=== PATIENT | female | born 1970 ===

== ENCOUNTER 2025-11-17 08:07 | Outpatient (AMB) | payer BC, SELFPAY ==
--- OUTSIDE RECORDS SUMMARY | 2025-11-13 23:59 | XMS_ITS | Continuity of Care Document ---
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 Multiskill Operator Name Role Phone Jong ARNOLD, [facility] Primary Care Physician Encounter [facility] Date(s): 10/14/25 - 11/13/25 [facility] [address] [place] [address]- Attending Physician: Admtr, Ar8 Admitting Physician: Admtr, Ar8 Referring Physician: Admtr, Ar8 Encounter Type: Triage Allergies, Adverse Reactions, Alerts No Known Allergies Immunizations Given and Recorded Vaccine Date Status Refusal Reason tetanus/diphtheria/pertussis, acel(Tdap) 05/03/22 Given tetanus/diphtheria/pertussis, acel(Tdap) 1 04/14/12 Recorded SARS-CoV-2 (COVID-19) mRNA-1273 vaccine 03/21/21 R ecorded SARS-CoV-2 (COVID-19) mRNA-1273 vaccine 02/21/21 R ecorded SARS-CoV-2 (COVID-19) mRNA-1273 vaccine 01/29/21 R ecorded influenza virus vaccine, inactivated 2 12/10/19 Gi pavel influenza virus vaccine, inactivated 08/13/17 Cordell rded influenza virus vaccine, inactivated 3 09/29/13 Re corded Hepatitis B Vaccine (old term) 4 01/04/15 Recorded Hepatitis B Vaccine (old term) 5 08/30/14 Recorded pneumococcal 23-valent vaccine 11/15/14 Given 1Location History: [facility] physicians 2Result Comment: [facility]:[id number] 3Location History: [email or web address] 4Location History: [facility] 5Location History: [facility] Medications Advair HFA 115 mcg / 21 mcg 2 puffs, Inhalation, 2 times a day, # 60 each, 5 Refills, Maintenance, 07/11/23 11:14:00 AM EDT, Aerosol, [id number], Partial fill upon patient request if the prescription is for a schedule IIopioid drug., 2 puffs Inhalation 2 times a day, 153, cm, 07/11/23 11:06:00 EDT, Height, 66, kg, 04/14/23 18:29:00 EDT, Dry Weight Start Date: 07/11/23 Status: Ordered Medication Dispense Status: Completed Quantity: 60.0 Unit: each Total Allowed Fills: 6 Fills Dispensed: 0 albuterol 0.083% inhalation solution 3 mL = 2.5 mg, Inhalation, Every 6 hours, PRN wheezing, (3 ml = 0.99428ix of Albuterol), # 360 mL, 5 Refills, Maintenance, 09/15/24 10:38:00 AM EDT, Inhalation Solution, [id number], 153, cm, 08/10/24 17:52:00 EDT, Height, 67.7, kg, 05/13/24 8:38:00 EDT, Dry Weight Start Date: 09/15/24 Status: Ordered Medication Dispense Status: Completed Quantity: 360.0 Unit: mL Total Allowed Fills: 6 Fills Dispensed: 0 amLODIPine 5 mg oral tablet 1 tablet = 5 mg, By Mouth, Daily, TAKE 1 TABLET BY MOUTH DAILY NEEDED FOR ELEVATED BLOOD PRESSURE, # 90 tablet, 11 Refills, Maintenance, 09/19/25 2:42:00 PM EDT, Tablet, [id number], Partial fill upon patient request if the prescription is for a schedule II opioid drug., 152.5, cm, 08/30/25 10:55:00 EDT, Height, 67, kg, 05/10/25 14:08:00 EDT, Dry Weight Start Date: 09/19/25 Status: Ordered Medication Dispense Status: Completed Quantity: 90.0 Unit: tablet Total Allowed Fills: 12 Fills Dispensed: 0 ciclopirox 8% topical solution 1 application, Topically, Daily, to affected area, use daily and remove with alcohol after 7 days, # 3.3 mL, 2 Refills, Maintenance, 05/10/25 2:46:00 PM EDT, Solution, [id number], Partial fillupon patient request if the prescription is for a schedule II opioid drug., 1 application Topically Daily,Instr:to affected area, use daily and remove with alcohol after 7 days, 152.5, cm, 05/10/25 14:44:00 EDT, Height, 67, kg, 05/10/25 14:08:00 EDT, Dry Weight Start Date: 05/10/25 Status: Ordered Medication Dispense Status: Completed Quantity: 3.3 Unit: mL Total Allowed Fills: 3 Fills Dispensed: 0 Claritin-D 24 Hour 10 mg-240 mg oral tablet, extended release 1 tablet, By Mouth, Daily, PRN as needed for congestion, # 5 tablet, 0 Refills, Maintenance, 05/21/25 9:47:00 AM EDT, [id number], Partial fill upon patient request if the prescription is for aschedule II opioid drug., 1 tablet By Mouth Daily,PRN:as needed for congestion, 152.5, cm, 258:57:00 EDT, Height, 67, kg, 05/10/25 14:08:00 EDT, Dry Weight Start Date: 05/21/25 Status: Ordered Medication Dispense Status: Completed Quantity: 5.0 Unit: tablet Total Allowed Fills: 1 Fills Dispensed: 0 Indications: Streptococcal pharyngitis; hydrOXYzine pamoate 25 mg oral capsule See Instructions, PRN as needed for anxiety, TAKE 1 CAPSULE BY MOUTH EVERY DAY AT BEDTIME NEEDEDANXIETY/INSOMNIA [id number], # 14 capsule, 3 Refills, Maintenance, 12/27/24 4:56:00 PM EST, [id number], 152.5, cm, 11/17/24 9:08:00 EST, Height, 66, kg, 11/12/24 8:09:00 EST, Dry Weight Start Date: 12/27/24 Status: Ordered Medication Dispense Status: Completed Quantity: 14.0 Unit: capsule Total Allowed Fills: 4 Fills Dispensed: 0 ibuprofen 600 mg oral tablet 600 mg, 1, tablet, By Mouth, Every 6 hours, # 90 tablet, Refills 0, Tot. Refills 0, Maintenance, 10/14/25 6:12:00 PM EST, Route to Pharmacy Electronically, [id number], Partial fill upon patient request if the prescription is for a schedule II opioid drug., 152, cm, 10/14/25 15:07:00 EST, Height, 68, kg, 09/20/25 12:13:00 EDT, Dry Weight Start Date: 10/14/25 Status: Ordered Medication Dispense Status: Completed Quantity: 90.0 Unit: tablet Total Allowed Fills: 1 Fills Dispensed: 0 Indications: Pain in right foot; Other specified congenital musculoskeletal deformities; Mag-SR with Calcium By Mouth, Daily, 0 Refills, Maintenance, 07/11/23 11:09:00 AM EDT, Partial fill upon patient requestif the prescription is for a schedule II opioid drug. Start Date: 07/11/23 Status: Ordered Medication Dispense Status: Completed Total Allowed Fills: 1 Fills Dispensed: 0 Multi Vitamin+ 0 Refills, Maintenance, 12/25/18 3:50:24 PM EST Start Date: 12/25/18 Status: Ordered Medication Dispense Status: Completed Total Allowed Fills: 1 Fills Dispensed: 0 riboflavin 400 mg oral capsule 1 capsule = 400 mg, By Mouth, Daily, # 100 capsule, 3 Refills, Maintenance, 10/04/24 2:02:00 PM EST,Capsule, [id number], 153, cm, 08/10/24 17:52:00 EDT, Height, 67.7, kg, 05/13/24 8:38:00 EDT, Dry Weight Start Date: 10/04/24 Status: Ordered Medication Dispense Status: Completed Quantity: 100.0 Unit: capsule Total Allowed Fills: 4 Fills Dispensed: 0 Ventolin HFA 108 mcg/inh inhalation aerosol with adapter 2 puffs, Inhalation, Every 4 hours, PRN for wheezing, # 8 Gm, 6 Refills, Maintenance, 05/13/24 9:08:00 AM EDT, Aerosol, [id number], Partial fill upon patient request if the prescription is fora schedule II opioid drug., 153, cm, 05/13/24 9:07:00 EDT, Height, 67.7, kg, 05/13/24 8:38:00 EDT, Dry Weight Start Date: 05/13/24 Status: Ordered Medication Dispense Status: Completed Quantity: 8.0 Unit: g Total Allowed Fills: 7 Fills Dispensed: 0 Vitamin B12 1000 mcg oral tablet 1 tablet = 1,000 mcg, By Mouth, Daily, # 30 tablet, 11 Refills, Maintenance, 12/09/22 9:17:00 AM EST,Tablet Start Date: 12/09/22 Status: Ordered Medication Dispense Status: Completed Quantity: 30.0 Unit: tablet Total Allowed Fills: 12 Fills Dispensed: 0 Vitamin D3 2000 intl units oral capsule 1 capsule = 2,000 International_Units, By Mouth, Daily, # 90 capsule, 2 Refills, Maintenance, 12/09/22 9:17:00 AM EST, Capsule Start Date: 12/09/22 Status: Ordered Medication Dispense Status: Completed Quantity: 90.0 Unit: capsule Total Allowed Fills: 3 Fills Dispensed: 0 Problem List Condition Confirmation Course Effective Dates Status H ealth Status Informant Abdominal pain Confirmed Active Adjustment disorder with anxiety Confirmed Active Allergic reaction Confirmed Active Anxiety Confirmed Active Bacterial sinusitis Confirmed Active Carpal tunnel syndrome, bilateral Confirmed Active Chronic pelvic pain in female Confirmed Active COVID Confirmed Active Dizziness Confirmed Active Endometriosis Confirmed Active Hx of migraines Confirmed Active Intractable headache Confirmed Active History of recurrent UTIs Confirmed Active Hyperlipidemia Confirmed Active Hypertension Confirmed Active Asthma Confirmed Active Panic attacks Confirmed Active Panic attacks Confirmed Active Routine medical exam Confirmed Active Pharyngitis Confirmed Active Productive cough Confirmed Active Recurrent UTI Confirmed Active Bilateral thigh pain Confirmed Active Fibroid uterus Confirmed Active EKG study * Event Display: EKG Authored Date: Patient Care team information Care Team Personnel Name: Evin ARNOLD, Mingo De La Torre Position: [facility] EAR NOSE THROAT PHYSICIAN MD Member Role: [employer] EAR NOSE THROAT PHYSICIAN Physician Name: Adriana Myers Position: [facility] Outreach Member Role: [employer] Consulting Physician Name: Rebecca Sunshine MD Position: [facility] Physician - Primary Care Member Role: PCP Address: [address] [place] [address] Adult & Pediatric Medicine [address] Telecom: Care Team Related Persons Name: NONE, NONE Name: NADIA CARDENAS Name: ZEHRA LARRY Insurance Providers Guarantor name: [facility] Information #: 1 Payer: [employer] Payer Identifier: ALIE Member Number: [id number] Group Number: [id number] Subscriber Identifier: ALIE Relationship to Subscriber: spouse Coverage Type: NA Coverage Verification Date: Telecom: NA Address:
--- OUTSIDE RECORDS SUMMARY | 2025-11-13 23:59 | XMS_ITS | Continuity of Care Document ---
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 Name Role Phone Jong ARNOLD, [facility] Primary Care Physician [phone] Encounter [facility] Date(s): 10/14/25 - 11/13/25 [facility] [address], [place] [address] Encounter Type: Triage Allergies, Adverse Reactions, Alerts [...] pneumococcal 23-valent vaccine 11/15/14 Given 1Location History: [facility] physicians 2Result Comment: [facility]:[id number] 3Location History: [facility] 4Location History: [facility] 5Location History: [facility] Medications Advair HFA 115 mcg / [...] 6 hours, PRN wheezing, (3 ml = 0.11148of of Albuterol), # 360 mL, 5 Refills, [...] BY MOUTH EVERY DAY AT BEDTIME NEEDEDANXIETY/INSOMNIA [id number], # 14 capsule, 3 Refills, Maintenance, 12/27/24 [...] 6:12:00 PM EST, Route to Pharmacy Electronically, [id number], Partial fill upon patient request [...] 3 Refills, Maintenance, 10/04/24 2:02:00 PM EST,Capsule, [id number], 153, cm, 08/10/24 17:52:00 EDT, Height, [...] pain Confirmed Active Fibroid uterus Confirmed Active Patient Care team information Care Team Personnel Name: Mingo Cleary MD Position: [facility] CAN CONVEYOR FEEDER MD Member Role: [employer] CAN CONVEYOR FEEDER Physician Name: Adriana Myers Position: [facility] Outreach Member Role: [employer] Consulting Physician Name: Rebecca Sunshine MD Position: [facility] Physician - Primary Care Member Role: PCP Address: [address] [place] [address] Adult & Pediatric Medicine [address] Telecom: Care Team Related Persons Name: NONE, NONE Name: NADIA CARDENAS Name: ZEHRA LARRY Insurance Providers Guarantor name: [facility] Information #: 1 Payer: [employer] [facility] Payer Identifier: ALIE Member Number: [id number] Group Number: [id number] Subscriber Identifier: NA Relationship to Subscriber: spouse Coverage Type: NA Coverage Verification Date: NA Telecom: NA Address:
--- NOTE | 2025-11-17 08:10 | MHC.PC.OV ---
Vital Signs 11/17/25 08:13 Height 5 ft Weight 151 lb 8 oz BMI 29.6 BP 130/86 Blood Pressure Location Lt brachial Position Sitting Respiration 16 Pulse 68 Pulse Source Pulse Oximeter Temp 97.1 F Temp Source Temporal Artery Scan Pulse Oximetry (%) 95 Oxygen Delivery Method Room Air Intake Visit Reasons: New Patient Re Est Care - see comments Health Sciences Dean Required: No Accompanied by: Self / Same As Patient Allergies No Known Allergies Allergy (Verified 11/17/25 08:15) Medication List - Last Reconciled 11/17/25 by Gaby Ahmadi MD amlodipine 5 mg PO DAILY PRN ondansetron 4 mg PO Q6H PRN Tobacco use date assessed: 11/17/25 Dental Screening Dental Screen Date: 11/17/25 Did you have a dental visit in the last 12 months?: Yes Did you have a dental problem in the last 6 months where you did not have access to dental care?: No Was dental information given to patient?: Patient has dentist HPI HPI Comments History of Present Illness Details The patient is a 55 year old female [facility] and for evaluation of headaches. Headache: The patient reports experiencing daily, severe headaches located in the back of her neck and radiating upwards. The pain is currently rated at a 2/10 severity but can be severe enough to restrict head movement. She notices the headaches are more pronounced at home. She has a history of migraines and was previously taking riboflavin 400 mg for prophylaxis, but this medication . She recently restarted amlodipine due to the headaches. Essential Hypertension: The patient has a history of hypertension with a blood pressure reading of 130/86 mmHg at today's visit. She reports recently restarting amlodipine. Asthma: The patient has a history of asthma and possesses both a nebulizer and an inhaler (Advair), which she uses on an as-needed basis rather than regularly. She takes precautions to avoid respiratory illnesses. Recurrent Urinary Tract Infections/ Possible menopausal symptoms: The patient reports ongoing issues with recurrent UTIs. She has a history of a hysterectomy with ovarian preservation. She has not had a gynecological exam in over two years. Muscle Cramps: The patient reports experiencing occasional muscle cramping, including Gustavo horses in her upper back. She has a history of hospitalization for hypokalemia and occasionally takes a potassium supplement. Social History: - Exercise: She engages in walking with her partner. - Nutrition: She and her are actively trying to improve their diet by increasing intake of salads, natural foods, and smoothies while reducing sodium, fat, starches, soda, bread, and pasta. Family History Includes: - PCOS- suspected in daughters - Reports a family history of complications related to gynecological issues. [facility] Medical History (Updated 11/17/25 @ 09:20 by Gaby Ahmadi MD) Screening for colon cancer Routine gynecological examination Recurrent UTI Vitamin B12 deficiency (non anemic) Vitamin D deficiency Routine medical exam Generalized anxiety disorder Unspecified asthma Mixed hyperlipidemia Primary hypertension Surgical History (Updated 11/17/25 @ 09:19 by Gaby Ahmadi MD) Previous section S/P GARTH (total abdominal hysterectomy) History of colonoscopy (~10/25/14) Family History (Updated 11/17/25 @ 08:21 by Autumn Salinas CMA) Maternal Aunt Mental health problem Substance abuse Other Coronary artery disease Diabetes mellitus type 2 in nonobese Primary hypertension Unspecified asthma Social History Housing: House Patient Tobacco Use Status: Former Tobacco user Years Smoked: during college, socially e-Cigarette/Vaping Use: Never Used Current occupational status: employed 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 1. Little interest or pleasure in doing things: not at all 2. Feeling down, depressed, or hopeless: not at all 3. Trouble falling or staying asleep, or sleeping too much: not at all 4. Feeling tired or having little energy: not at all 5. Poor appetite or overeating: not at all 6. Feeling bad about yourself - or that you are a failure or have let yourself or your family down: not at all 7. Trouble concentrating on things, such as reading the newspaper or watching television: not at all 8. Moving or speaking so slowly that other people could have noticed. Or the opposite - being so fidgety or restless that you have been moving around a lot more than usual: not at all 9. Thoughts that you would be better off or of hurting yourself in some way: not at all Total score: 0 Depression Screening Interpretation: Negative Depression Screening Done: Yes 37439 - PHQ-9 Billing: Yes Source: Developed by Drs. Bobby Buitrago, Carlie Ceron, Adonis Curtis and colleagues, with an educational arnaldo from [employer]. Thrive Questionnaire Date Thrive assessed: 11/17/25 I am a: Patient What is your living situation today?: I have a steady place to live Within the past 12 months, did the food you bought not last and you didn't have the money to get more?: Never true Within the past 12 months, did you worry whether your food would run out before you got money to buy more?: Never true Do you have trouble paying for medicines?: No Do you have trouble getting transportation to medical appointments?: No Do you have trouble paying your heating and electricity bill?: No Do you have trouble taking care of your child, family member or friend?: No Do you have trouble with day-to-day activities such as bathing, preparing meals, shopping, managing finances, etc.?: No Are you currently unemployed and looking for a job?: No Are you interested in more education?: No Please select the resources that you would like help with: None Currently or been in a relationship where the following occur: No concerns reported THRIVE Score: 0 AUDIT C Alcohol Use Questionnaire (AUDIT-C) 1. How often do you have a drink containing alcohol?: Monthly or less 2. How many drinks containing alcohol do you have on a typical day when you are drinking?: 1 or 2 3. How often do you have six or more drinks on one occasion?: Never Total Score: 1 JAUN-7 AMB Questionnaire JAUN-7 Date JAUN - 7 assessed: 11/17/25 Feeling nervous, anxious, or on edge: 0 = Not at all Not being able to stop or control worryin = Not at all Worrying too much about different things: 0 = Not at all Trouble relaxin = Not at all Being so restless that it is hard to sit still: 0 = Not at all Becoming easily annoyed or irritable: 0 = Not at all Feeling afraid as if something awful might happen: 0 = Not at all Total JAUN-7 score (0-4 normal; 5-9 mild; 10-14 moderate; 15-21 severe): 0 Source: Developed by Carlie Alvarado.W. Osmany, Adonis Curtis and colleagues, with an educational arnaldo from [employer]. Review of Systems Narrative Review of Systems - Constitutional: Reports hair loss. - Respiratory: Denies current wheezing; uses inhaler only as needed - Neurological: Reports daily headaches radiating from the neck upwards and occasional muscle cramps (Gustavo horses) in the back and legs. - Endocrine: Reports being thirsty at night and having frequent urination. - Psychiatric: Denies work stress and reports sleeping well. - Genitourinary: Reports recurrent UTIs, problems with intimacy, and vaginal dryness. Physical exam (Primary Care) Vital Signs: Last Vital Signs Temp 97.1 F 11/17/25 08:13 Pulse 68 11/17/25 08:13 Resp 16 11/17/25 08:13 BP 130/86 11/17/25 08:13 Pulse Ox 95 11/17/25 08:13 Oxygen Delivery Method Room Air 11/17/25 08:13 BMI result Body Mass Index 29.6 Tobacco/Smoking Status: Tobacco use Status Tobacco use date assessed 11/17/25 11/17/25 08:12 Patient Tobacco Use Status Former Tobacco user 11/17/25 08:21 e-Cigarette/Vaping Use Never Used 11/17/25 08:21 PHQ-9: PHQ-9 Score PHQ-9: Total score 0 11/17/25 09:16 Depression Screening Interpretation: Negative Thrive Assessment: Date of Thrive Assessment Date Thrive assessed 11/17/25 11/17/25 08:12 Currently or been in a relationship where the following occur: No concerns reported Narrative Physical Exam - Gen; NAD - Cardiovascular: Regular rate and rhythm. A soft murmur is noted. - Pulmonary: Lungs are clear to auscultation bilaterally. No wheezing noted. - Abdomen: Bowel sounds are normal. Abdomen is soft and non-tender to palpation. - Neck/Musculoskeletal: Palpation reveals significant tightness in the bilateral sternocleidomastoid muscles Coding Level of Care Code Est Pt Level 4 (15146) Add On Problem Visit Only Diagnoses Primary hypertension I10 Mixed hyperlipidemia E78.2 Additional Codes PHQ-9 - 58869 - PHQ-9 Billing: Yes ([id number]) Assessment & Plan Assessment & Plan (1) Primary hypertension: Code(s): I10 - Essential (primary) hypertension Category: Medical (2) Mixed hyperlipidemia: Code(s): E78.2 - Mixed hyperlipidemia Category: Medical Plan Assessment and Plan 1. Headache - The patient's daily headaches are likely cervicogenic or tension-type, given the significant neck muscle tightness found on exam. - Migraine remains a differential. - The plan is to address potential triggers and provide prophylaxis. - I will order a comprehensive lab panel today, including vitamin D, B12, thyroid, calcium, CBC, and a diabetes screen. - She is advised to restart riboflavin 400 mg daily, start magnesium 400 mg daily, and take vitamin B12 1000 mcg and vitamin D 2000 IU. - She should use a heating pad on her neck - If symptoms do not improve in 3-4 weeks, a referral for physical therapy for myofascial release will be considered. 2. Essential hypertension - The patient has appropriately restarted her amlodipine. - Her planned dietary modifications, including reduced sodium, should also be beneficial. 3. Recurrent UTIs and Perimenopausal Symptoms - Referral to FIELD SERVICE ENGINEER - has used macrobid in the past for prophylaxis 4. Muscle Cramps - The patient reports occasional muscle cramps and has a history of hypokalemia. - The ordered lab work will assess current electrolyte levels. - The initiation of magnesium 400 mg daily may also help alleviate these symptoms. 5. Health Maintenance - A referral for a colonoscopy will be placed. - FIELD SERVICE ENGINEER referral - follow up for physical in December 2025 Plan - Will order comprehensive lab work today, including vitamin D, B12, thyroid function, calcium, CBC, anemia panel, and diabetes screening. - Recommended adjusting vitamin regimen to: riboflavin 400 mg, magnesium 400 mg, B12 1000 mcg, vitamin D 2000 IU, and reducing multivitamin to one gummy daily. - Advised patient on home care for neck pain, including consistent use of a heating pad and purchasing a new supportive pillow. - If headaches do not improve with conservative measures within 3-4 weeks, will refer for physical therapy. Patient Instructions - Please go to the lab today to have your blood drawn for the tests we discussed. - Restart taking Riboflavin 400 mg once a day for headache prevention. - Start taking Magnesium 400 mg once a day. - Take Vitamin B12 1000 mcg and Vitamin D 2000 IU daily. - Reduce your multivitamin intake to one gummy per day. - Continue taking your amlodipine as prescribed for blood pressure. - Apply a heating pad to your neck area to help with the muscle tightness and headaches. - Continue with your healthy diet changes, including eating more salads and vegetables and reducing salt and starches. Orders: Orders Comprehensive Met. Panel Today E53.8 - Deficiency of other specified B group vitamins, E55.9 - Vitamin D deficiency, unspecified, E78.2 - Mixed hyperlipidemia, I10 - Essential (primary) hypertension, Z00.00 - Encounter for general adult medical examination without abnormal findings Microalbumin, Random (w Creat) Today E53.8 - Deficiency of other specified B group vitamins, E55.9 - Vitamin D deficiency, unspecified, E78.2 - Mixed hyperlipidemia, I10 - Essential (primary) hypertension, Z00.00 - Encounter for general adult medical examination without abnormal findings Folate Today E53.8 - Deficiency of other specified B group vitamins, E55.9 - Vitamin D deficiency, unspecified, E78.2 - Mixed hyperlipidemia, I10 - Essential (primary) hypertension, Z00.00 - Encounter for general adult medical examination without abnormal findings Lipid Panel Today E53.8 - Deficiency of other specified B group vitamins, E55.9 - Vitamin D deficiency, unspecified, E78.2 - Mixed hyperlipidemia, I10 - Essential (primary) hypertension, Z00.00 - Encounter for general adult medical examination without abnormal findings Complete Blood Count Auto Diff Today E53.8 - Deficiency of other specified B group vitamins, E55.9 - Vitamin D deficiency, unspecified, E78.2 - Mixed hyperlipidemia, I10 - Essential (primary) hypertension, Z00.00 - Encounter for general adult medical examination without abnormal findings Magnesium Today E53.8 - Deficiency of other specified B group vitamins, E55.9 - Vitamin D deficiency, unspecified, E78.2 - Mixed hyperlipidemia, I10 - Essential (primary) hypertension, Z00.00 - Encounter for general adult medical examination without abnormal findings Vitamin B12 Today E53.8 - Deficiency of other specified B group vitamins, E55.9 - Vitamin D deficiency, unspecified, E78.2 - Mixed hyperlipidemia, I10 - Essential (primary) hypertension, Z00.00 - Encounter for general adult medical examination without abnormal findings Vitamin D 25-OH Total Today E53.8 - Deficiency of other specified B group vitamins, E55.9 - Vitamin D deficiency, unspecified, E78.2 - Mixed hyperlipidemia, I10 - Essential (primary) hypertension, Z00.00 - Encounter for general adult medical examination without abnormal findings TSH reflex Free T4 Today E53.8 - Deficiency of other specified B group vitamins, E55.9 - Vitamin D deficiency, unspecified, E78.2 - Mixed hyperlipidemia, I10 - Essential (primary) hypertension, Z00.00 - Encounter for general adult medical examination without abnormal findings Ferritin Today E53.8 - Deficiency of other specified B group vitamins, E55.9 - Vitamin D deficiency, unspecified, E78.2 - Mixed hyperlipidemia, I10 - Essential (primary) hypertension, Z00.00 - Encounter for general adult medical examination without abnormal findings Hemoglobin A1c Today E53.8 - Deficiency of other specified B group vitamins, E55.9 - Vitamin D deficiency, unspecified, E78.2 - Mixed hyperlipidemia, I10 - Essential (primary) hypertension, Z00.00 - Encounter for general adult medical examination without abnormal findings IRON PROFILE Today E53.8 - Deficiency of other specified B group vitamins, E55.9 - Vitamin D deficiency, unspecified, E78.2 - Mixed hyperlipidemia, I10 - Essential (primary) hypertension, Z00.00 - Encounter for general adult medical examination without abnormal findings Referrals [facility] Referral N39.0 - Urinary tract infection, site not specified, Z01.419 - Encounter for gynecological examination (general) (routine) without abnormal findings Gastroenterology Referral Z12.11 - Encounter for screening for malignant neoplasm of colon Medications: New magnesium oxide 400 mg PO DAILY 90 caps 3RF riboflavin (vitamin B2) 400 mg PO DAILY 90 tabs 3RF albuterol sulfate 90 mcg/actuation 2 puffs inhalation Q6H PRN cholecalciferol (vitamin D3) 50 mcg PO DAILY 90 caps 3RF cyanocobalamin (vitamin B-12) 1,000 mcg PO DAILY 90 caps 3RF albuterol sulfate 2.5 mg inhalation Q6H PRN fluticasone propion-salmeterol 115-21 mcg/actuation (Advair HFA) 2 puffs inhalation BID amlodipine 5 mg PO DAILY PRN 90 tabs 3RF blood pressure Patient Instructions: [phone] CAN SCHEDULE APPOINTMENT WITH NURSE BRET WILSON WE WILL REFER YOU TO SEE GASTROENTEROLOGY FOR COLONOSCOPY
--- OUTSIDE RECORDS SUMMARY | 2025-11-17 08:12 | XMS_ITS | Clinical Summary ---
Author Organization [facility] [address] [facility] Address [address] [place] [address] Phone Care Team Providers Care Chemical Maker Name Role Phone Gaby Ahmadi MD Primary Care Provider [phone] Allergies No known active allergies Medications fluticasone propion-salmete roL (ADVAIR HFA) 115-21 mcg/actuation inhaler Inhale 2 puffs by mouth 2 (two) times a day. Rinse mouth with water after use to reduce aftertaste and incidence of candidiasis. Do not swallow. Active albuterol HFA (PROAIR HFA ; PROVENTIL HFA ; VENTOLIN HFA) 90 mcg/actuation inhaler Inhale 2 puffs by mouth every 6 (six) hours if needed for wheezing. Active amLODIPine (NORVASC) 5 mg tablet Take 1 tablet (5 mg total) by mouth 1 (one) time each day. Active ciclopirox (PENLAC) 8 % solution Apply over nail and surrounding skin. Apply daily over previous coat. After seven (7) days, may remove with alcohol and continue cycle. Active hydrOXYzine HCL (ATARAX) 25 mg tablet Take 1 tablet (25 mg total) by mouth. Active magnesium lactate (MAGTAB) 84 mg CR tablet Take by mouth. Activ e multivitamin tablet Take 1 tablet by mouth 1 (one) time each day. Active riboflavin (VITAMIN B2) 400 mg tablet Take 1 tablet (400 mg total) by mouth 1 (one) time each day. Active albuterol (PROVENTIL,VENT WILVER) 2 mg/5 mL syrup Take by mouth 3 (three) times a day. Active cyanocobalamin (VITAMIN B-12) 1,000 mcg tablet Take 1 tablet (1,000 mcg total) by mouth 1 (one) time each day. Active Social History Tobacco Use Types Packs/Day Years Used Date Smoking Tobacco: Never Assessed Comments Unknown Sex and Gender Information Value Date Recorded Sex Assigned at Female 05/13/2025 10:48 AM EDT Legal Sex Female 4:36 AM EST Gender Identity Female 05/13/2025 10:48 AM EDT Sexual Orientation Not on file Plan of Treatment Health Maintenance Due Date Last Done Comments Breast Cancer Screening 1971 Colorectal Cancer Screening: Colonoscopy 1971 Cervical Cancer Screening: P ap Smear 1992 Hepatitis B Vaccines (3 of 3 - 19+ 3-dose series) 03/01/2015 01/04/2015, 08/30/2014 Pneumococcal Vaccine: 50+ Years (2 of 2 - PCV) 11/15/2015 11/15/2014 RSV Immunization Adult Patients (1 - Risk 50-74 years 1-dose series) 2021 Zoster Vaccines (1 of 2) 2021 Cholesterol Screening (Lipid Panel) 11/03/2022 HIV Screening 11/03/2022 Hepatitis C Screening 11/03/2022 Social Influencers of Health Screening 11/03/2022 Depression Screening 12/01/2024 COVID-19 Vaccine (4 - 2024-2 6 season) 2025 03/21/2021, 02/21/2021, 01/29/2021 Influenza Vaccine (#1) 2025 , 08/13/2017, 09/29/2013 Hypertension/CHF/CAD Annual BMP Blood Test 10/12/2025 DTaP,Tdap,and Td Vaccines (3 - Td or Tdap) 05/03/2032 05/03/2022, 04/14/2012 HIB Vaccines Aged Out No longer eligi ble based on patient's age to complete this topic HPV Vaccines Aged Out No longer eligi ble based on patient's age to complete this topic Hepatitis A Vaccines Aged Out No long er eligible based on patient's age to complete this topic IPV Vaccines Aged Out No longer eligi ble based on patient's age to complete this topic MMR Vaccines Aged Out No longer eligi ble based on patient's age to complete this topic Meningococcal ACWY Vaccine Aged Out N o longer eligible based on patient's age to complete this topic Meningococcal B Vaccine Aged Out No l onger eligible based on patient's age to complete this topic RSV Immunization Patients Under 20 months Aged Out No longer eligible b ased on patient's age to complete this topic Varicella Vaccines Aged Out No longer eligible based on patient's age to complete this topic Insurance [facility] Care Teams Chemical Maker Relationship Specialty [place] [address] [place] [id number] PCP - General Internal Medicine 05/13/25
[2025-11-17 08:13] VITALS: BP 130/86; PULSE 68; RESP 16; TEMP 36.2; O2SAT 95; BMI 29.6
== END 2025-11-17 09:33 | disposition home or self-care (01) ==
LOC: HO.HMCHD 08:08
PROVIDERS: PCP Internal Medicine; Visit Provider Internal Medicine
DX: I10 Essential (primary) hypertension (principal); E78.2 Mixed hyperlipidemia

== ENCOUNTER 2025-11-17 08:07 | Outpatient (REF) | payer BC, SELFPAY ==
[2025-11-17 10:52] LABS: MANUAL DIFF FLAG NO
[2025-11-17 10:57] LABS: Hematocrit 42.7 % (37.0-47.0); Hemoglobin 14.4 g/dl (12.0-16.0); Imm Gran Abs Auto 0.01 X10*3/uL (0.00-0.03); Imm Gran Pct Auto 0.2 % (0.0-0.4); Lymphocytes Absolute Auto 2.1 X10*3/uL (1.2-4.9); Mean Corpuscular HGB Conc 33.7 g/dl (31.0-35.0); Mean Corpuscular Hemoglobin 27.0 pg (27.0-33.0); Mean Corpuscular Volume 80.1 fL (80.0-98.0); NRBC Abs Auto 0.000 X10*3/uL (0.0-0.012); NRBC Pct Auto 0.0 /100WBC (0.0-0.2); Platelet Count 234 X10*3/uL (160-400); Red Blood Count 5.33 X10*6/uL (4.20-5.50); White Blood Count 5.5 X10*3/uL (4.8-10.8)
--- OUTSIDE RECORDS SUMMARY | 2025-11-17 12:24 | XMS_ITS | Clinical Summary ---
Author Organization [facility] Address [address] [place] [address] Phone Care Team Providers Care Letter Of Credit Clerk Name Role Phone Gaby Ahmadi MD Primary Care Provider + Allergies No known active allergies Social History Tobacco Use Types Packs/Day Years Used Date Smoking Tobacco: Never Assessed Education Answer Date Recorded Are you interested in more education? Not on milagros e 03/29/2023 Are you concerned about learning? Not on file 03/29/2023 No 03/29/2023 No 03/29/2023 Digital Access Answer Date Recorded No 04/29/2023 No 04/29/2023 Reliable internet access at home? Not on file 04/29/2023 Device with a working camera? Not on file Comments Unknown Sex and Gender Information Value Date Recorded Sex Assigned at Not on file Legal Sex Female 3:06 PM EDT Gender Identity Not on file Sexual Orientation Not on file Last Filed Vital Signs Vital Sign Reading Time Taken Comments Blood Pressure 172/107 04/24/2022 8:03 PM EDT Pulse 78 04/24/2022 8:03 PM EDT Temperature 36.9 C (98.4 F) 04/24/2022 8:03 PM EDT Respiratory Rate 20 04/24/2022 3:33 PM EDT Oxygen Saturation 97% 04/24/2022 8:03 PM EDT Inhaled Oxygen Concentration - - Weight 68.9 kg (152 lb) 04/24/2022 3:33 PM EDT Height 152.4 cm (5') 04/24/2022 3:33 PM EDT Body Mass Index 29.69 04/24/2022 3:33 PM EDT Plan of Treatment Not on file Medical Devices Not on file Insurance O O O O O O O O HMO Care Teams Letter Of Credit Clerk Relationship Specialty Start Date End Date Gaby Ahmadi MD PCP - General Internal Medicine 04/24/22 Additional Source Comments The information contained in this document represents components of the legal health record. It is not the complete legal health record.[facility]
[2025-11-17 14:05] LABS: Folate 11.2 ng/mL (> or = 4.0); Vitamin B12 485 pg/mL (200-900)
[2025-11-17 14:10] LABS: Alanine Aminotransferase 24 U/L (0-31); Albumin Level 4.6 g/dL (3.5-5.0); Alkaline Phosphatase 200 U/L (39-117); Anion Gap 13 (12-20); Aspartate Amino Transferase 20 U/L (5-31); Blood Urea Nitrogen 20 mg/dL (9-16); Calcium 9.2 mg/dL (8.4-10.2); Carbon Dioxide 27 mmol/L (22-29); Chloride 107 mmol/L (96-108); Cholesterol 295 mg/dL (<200); Estimated Glomerular Filt Rate > 60; Ferritin 28 ng/mL (10-250); HDL Cholesterol 52 mg/dL (>40); Iron 73 mcg/dL (30-160); Magnesium 2.3 mg/dL (1.6-2.6); Percent Iron Saturation 23 % (15-50); Potassium 3.7 mmol/L (3.3-5.1); Sodium 143 mmol/L (135-145); Total Iron Binding Capacity 318 mcg/dL (228-428); Total Protein 7.1 g/dL (6.5-8.0); Triglycerides 120 mg/dL (<150); Unsaturated Iron Binding 245 ug/dL
== END 2025-11-17 08:08 | disposition home or self-care (01) ==
LOC: HO.10HDL 08:07
PROVIDERS: PCP Internal Medicine; Visit Provider Internal Medicine
DX: Z00.00 Encounter for general adult medical examination without abnormal findings (principal); I10 Essential (primary) hypertension; E78.2 Mixed hyperlipidemia; E55.9 Vitamin D deficiency, unspecified; E53.8 Deficiency of other specified B group vitamins; Z79.899 Other long term (current) drug therapy
CPT/HCPCS: 36415; 80053; 80061; 82306; 82607; 82728; 82746; 83036; 83540; 83735; 84443; 85025; 96127